=== PATIENT | female | born 1970 | race Caucasian/White ===

== ENCOUNTER 2016-08-18 07:27 | Day surgery (SDC) | payer BC, OTHER ==
[2016-08-11 14:46] LABS: BASO % 0.5 %; BASO ABS # 0.04 K/uL (0-0.2); COMPLETE YES; EOS % 0.6 %; HEMATOCRIT 43.4 % (37-47); IG% 0.1 %; LYMPH % 30.7 %; LYMPH ABS # 2.39 K/uL (1.2-3.4); MEAN CELL VOLUME 83.9 fL (80-100); MEAN CORPUSCULAR HEMOGLOBIN 28.2 pg (25-34); MEAN CORPUSCULAR HGB CONC 33.6 g/dl (32-36); MEAN PLATELET VOLUME 9.4 fL (7.4-10.4); MONO % 6.9 %; NEUT % 61.2 %; PLATELET COUNT 530 K/uL (130-400); RED BLOOD COUNT 5.17 M/uL (4.2-5.4); WHITE BLOOD COUNT 7.78 K/uL (4.8-10.8)
[2016-08-18] VITALS (9 sets, daily range): BP systolic 97–166; BP diastolic 53–75; PULSE 69–99; TEMP 36.4–37; O2SAT 95–98; Ht 160 cm; Wt 78.4 kg
[~2016-08-18] VITALS: Ht 160 cm; Wt 78.4 kg
[~2016-08-18 07:27] MED LIST: CEFAZOLIN 2000 MG/60 ML D5W 50 ML IV SCH; DEXAMETHASONE SOD INJ 4 MG/ML VIAL ONE; FENTANYL CITRATE INJ 50 MCG/1 ML 2 ML VIAL ONE; GLYCOPYRROLATE INJ 0.2 MG/ML VIAL ONE; LACTATED RINGER'S 1000ML 1,000 ML IV SCH; LIDOCAINE HCL 2% 2 ML VIAL (20MG/ML) ONE; MIDAZOLAM HCL 1 MG/ML 2ML VIAL ONE; NEOSTIGMINE METHYLSULFATE 5 MG/5 ML SYR ONE; ONDANSETRON INJ 2 MG/ML 2 ML VIAL ONE; PROPOFOL IV EMULSION 10 MG/ML 20 ML VIAL IV ONE; ROCURONIUM BROMIDE 10 MG/ML 5 ML VIAL ONE
[2016-08-18] MEDS ORDERED: GLYCOPYRROLATE INJ 0.2 MG/ML VIAL ONE (07:28)
[2016-08-18] MEDS ORDERED: SODIUM CHLORIDE 0.9% INJ 10 ML VIAL ONE (07:30)
[2016-08-18] MEDS ORDERED: METHYLENE BLUE 0.5% 10 ML VIAL ONE (08:06)
[2016-08-18] MEDS: LACTATED RINGER'S 1000ML 1,000 ML IV SCH ×2 (08:12→12:54)
--- NOTE | 2016-08-18 08:54 | History & Physical Bridge Note ---
H&P Re-Evaluation Bridge Note: I have examined the patient, reviewed the History & Physical and in the interval since the performance of the History & Physical I have noted the following changes of clinical significance: No changes noted
[2016-08-18] MEDS ORDERED: OXYC-57 PO (08:55)
--- NOTE | 2016-08-18 08:56 | Discharge Instructions ---
Discharge Instructions Date of Service Aug 18, 2016. Visit Reason for Visit: Menorrhagia; Leiomyoma of Uterus Discharge Discharge Diagnosis / Problem: menorrhagia Discharge Goals Goal(s): Specific goals Activity Recommendations Activity Limitations: per Instructions/Follow-up section Anesthesia . Post Anesthesia Instructions: If you have had General Anesthesia or IV Sedation: * Do not drive today. * Resume driving when surgeon permits. * Do not make important decisions or sign legal documents today. * Call surgeon for: 1. Temperature elevations greater than 101 degrees F. 2. Uncontrollable pain. 3. Excessive bleeding. 4. Persistent nausea and vomiting. 5. Medication intolerance (nausea, vomiting or rash). * For nausea and vomiting use only clear liquids such as: tea, soda, bouillon until nausea subsides, then gradually increase diet as tolerated. * If you have any concerns or questions, call your surgeon's office. If physician is unavailable and it is an emergency, call 911 or go to the nearest emergency room. . Diet Recommendations Recommended Home Diet: resume previous diet Pending Studies Studies pending at discharge: no Medical Emergencies . Who to Call and When: Medical Emergencies: If at any time you feel your situation is an emergency, please call 911 immediately. . Non-Emergent Contact Non-Emergency issues call your: Primary Care Provider . . "Provider Documentation" section prepared by Anna Gates. [place] Drug Monitoring Program Search Results: patient reviewed within database, no issues identified
[2016-08-18] MEDS ORDERED: MEPERIDINE HCL 75 MG/ML CARP IV PRN (09:00)
[2016-08-18] MEDS ORDERED: KETOROLAC TROMETHAMINE 30 MG/ML VIAL IV. PRN (09:00)
[2016-08-18] MEDS ORDERED: ATROPINE SULFATE 0.1 MG/ML 5ML SYR IV PRN (09:00)
[2016-08-18] MEDS ORDERED: EpHEDrine SULFATE INJ 50 MG/ML AMP IV PRN (09:00)
[2016-08-18] MEDS ORDERED: ONDANSETRON INJ 2 MG/ML 2 ML VIAL IV PRN ×2 (09:00)
[2016-08-18] MEDS ORDERED: OXYCODONE/ACETAMINOPHEN 5-325 TAB PO PRN (09:00)
[2016-08-18] MEDS ORDERED: ACETAMINOPHEN 325 MG TAB PO PRN (09:00)
[2016-08-18] MEDS ORDERED: PHENYLEPHRINE 100MCG/ML 5ML SYR IV PRN (09:00)
[2016-08-18] MEDS ORDERED: PROMETHAZINE HCL INJ 25 MG in SODIUM CHLORIDE 0.9% 50ML 50 ML IV PRN (09:00)
[2016-08-18] MEDS ORDERED: PROMETHAZINE HCL INJ 12.5 MG in SODIUM CHLORIDE 0.9% 50ML 50 ML IV PRN (09:00)
[2016-08-18] MEDS ORDERED: MEPERIDINE HCL 50 MG/ML CARP IV PRN (09:00)
[2016-08-18] MEDS ORDERED: SIMETHICONE 80 MG CHEW PO PRN (09:00)
[2016-08-18] MEDS ORDERED: FENTANYL CITRATE INJ 50 MCG/1 ML 2 ML VIAL ONE ×2 (09:34→10:52)
[2016-08-18] MEDS ORDERED: METOPROLOL TARTRATE 1 MG/ML VIAL ONE (09:44)
[2016-08-18] MEDS ORDERED: IV FLUIDS COMPLETED PRN (10:15)
--- NOTE | 2016-08-18 11:01 | [facility] Post Operative Brief Note ---
Immediate Operative Summary Operative Date Aug 18, 2016. Pre-Operative Diagnosis Menorrhagia, Fibroid Uterus Post-Operative Diagnosis Menorrhagia, Fibroid Uterus Procedure(s) Performed Robotic Assisted Total Laparoscopic Hysterectomy, Left Salpingectomy, Cystoscopy Surgeon Dr. Anna Gates Rug Cleaner Surgeon(s) Bhupinder Lee, MS3 Estimated Blood Loss 15 Findings Distorted fibroid uterus. surgically absent R tube and ovary. L tube present but previously ligated. L ovary normal. Appendix present / WNL. Specimens A. Uterus, Cervix, and Left Fallopian Tube. Complication(s) None Disposition Recovery Room / PACU
[2016-08-18] MEDS ORDERED: ONDANSETRON INJ 2 MG/ML 2 ML VIAL ONE (11:04)
[2016-08-18] MEDS: HYDROmorphone INJ 2 MG/ML SYR/VIAL IV PRN ×6 (11:11→11:40)
[2016-08-18] MEDS ORDERED: SCOPOLAMINE 1.5 MG TDSY TD ONE (11:24)
[2016-08-18] MEDS ORDERED: NURSING VERBAL MED ORDER STA (11:36)
[2016-08-18] MEDS ORDERED: HYDROmorphone INJ 1 MG/ML SYR ONE (11:40)
--- NOTE | 2016-08-18 11:51 | Anesthesiology Progress Note ---
Anesthesia Post Op Note Date & Time Aug 18, 2016 at 11:50 Vital Signs Pain Intensity: 5 Vital Signs Past 12 Hours Date Time Temp Pulse Resp B/P Pulse Ox O2 Delivery O2 Flow Rate FiO2 08/18/16 11:40 59 12 120/50 98 Nasal Cannula 2 08/18/16 11:30 71 11 131/68 98 Nasal Cannula 2 08/18/16 11:20 72 14 126/73 99 Mask 10 08/18/16 11:10 67 13 123/67 99 Mask 10 08/18/16 11:03 36.5 69 14 127/63 100 Mask 10 08/18/16 07:45 36.9 85 18 166/75 97 Room Air Notes Mental Status: alert / awake / arousable, participated in evaluation Pt Amnestic to Procedure: Yes Nausea / Vomiting: adequately controlled Pain: adequately controlled Airway Patency, RR, SpO2: stable & adequate BP & HR: stable & adequate Hydration State: stable & adequate Anesthetic Complications: no major complications apparent
--- NOTE | 2016-08-18 13:16 | Medical Student: [facility] ---
Operative Report Operative Date Aug 18, 2016. Pre-Operative Diagnosis menorrhagia Post-Operative Diagnosis same Procedure(s) Performed Total laparoscopic hysterectomy with robot assist and cystoscopy Surgeon Dr. Anna Gates Reconnaissance Man Surgeon(s) Bhupinder Lee, MS3 Estimated Blood Loss 15 ml Findings Distorted fibroid uterus. Surgically absent R tube and ovary. L tube present but previously ligated. L ovary normal. Appendix present / WNL. Specimens A. Cervix, Uterus, and Left fallopian tube Complication(s) None Disposition Recovery Room / PACU Description of Procedure The abdomen and vagina were prepped and draped. A Bradley catheter was inserted. Following sounding of the uterus, the balloon manipulator was placed and secured by inflating the balloon with saline. The cervical cup was placed around the cervix. An umbilical incision was made and a 12 mm camera port was placed using a trocar. Following insertion of the camera, the abdomen was insufflated. Two 8 mm ports were placed 10 cm lateral to the umbilicus and 2 cm inferiorly. Following confirmation of the placement of the ports, the [employer] robot was docked. The patient was placed in full Trendelenburg position. Inspection of the pelvis revealed a fibroid uterus, surgically absent right tube and ovary, and normal left ovary with evidence of prior tubal ligation. The left fallopian tube was cauterized and ligated. The infundibulopelvic ligament was also coagulated and cut. The round ligament was coagulated and cut. A bladder flap was created and the bladder was dissected from the cervix. The green cuff was then identified and an incision was made in the cervicovaginal junction on top of the vaginal cuff. The incision was extended around the circumference of the cuff. The uterus was removed using a tenaculum through the vagina. The vaginal cuff was closed with 0 Vicryl sutures. Hemostasis was achieved. Prior to closure of the incision sites, methylene blue was administered and 10 minutes later, cystoscopy was performed to assess the patency of the ureters. Both ureters were found to be patent. The umbilical site was closed with a suture of 0 Vicryl and the skin of this incision was closed with 4-0 monocryl. The lateral incisions were closed with Dermabond glue. The final needle, sponge, and instrument count was correct. The patient tolerated the procedure well. Patient to the recovery room in good condition.
[2016-08-18 15:27] LABS: HEMATOCRIT 41.1 % (37-47)
[2016-08-18] MEDS: CHECK SCOPOLAMINE PATCH PLACEMENT SCH (15:45)
--- NOTE | 2016-08-18 16:33 | OPERATIVE REPORT ---
DATE OF OPERATION: 08/18/2016 PREOPERATIVE DIAGNOSES: Menorrhagia and fibroid uterus. POSTOPERATIVE DIAGNOSIS: Same. PROCEDURE: Robotic-assisted total laparoscopic hysterectomy with left salpingectomy and cystoscopy. SURGEON: Anna Gates MD ENROLLMENT MANAGEMENT MANAGER: MS3. ESTIMATED BLOOD LOSS: 15 mL. FINDINGS: A distorted fibroid uterus, a surgically absent right tube and ovary. Left tube is present, but previously ligated. Left ovary appears normal and the appendix is present and grossly within normal limits. SPECIMENS: Uterus, cervix and left fallopian tube. COMPLICATIONS: None. DISPOSITION: Stable to the recovery room. DESCRIPTION OF PROCEDURE: Lashwan is a 46-year-old female with refractory menorrhagia who elected definitive treatment. She was brought to the operating room and placed in the dorsal lithotomy position with Yellofin stirrups, prepped and draped in standard sterile fashion and a hard time-out was taken prior to proceeding. Bradley and [employer] uterine manipulator were both placed. The abdomen was then approached and the entry was made in an optical manner at the umbilicus without complication. The abdomen was insufflated and under direct visualization, right and left lower quadrant ports were placed. The pelvic organs were easily visualized. The robot was then docked and surgery began in earnest. The uterus was noted to be grossly distorted with multiple fibroids. It was able to be manipulated well enough to allow for surgical approach to each cornu. Dissection began on the right side where the surgically absent right tube and ovary were as expected. Dissection began with ligation of the round ligament and dissection of the broad ligament in order to skeletonize the uterine artery, which was then ligated. A bladder flap was partially created. Attention was then turned to the left side, where the fallopian tube was dissected off the mesosalpinx and left attached to the cornua. The utero-ovarian ligament was ligated and divided, and dissection of the broad ligament was completed to skeletonize the uterine arteries. The bladder flap was completed and the bladder was mobilized. The uterine arteries were then ligated and divided on this side. Dissection was completed, colpotomy began and was completed circumferentially around the green colpotomy cup. The uterus was then grasped using a ring forceps and tenaculum from a vaginal approach and was gently teased out through the vagina with the left fallopian tube remaining attached. The entire specimen was set aside. Attention was then turned to closure of the cuff, which was achieved in the usual manner with a V-Loc suture in a running nonlocked manner. At the completion of the repair, the cuff was hemostatic, well approximated and no gas leakage per vagina was appreciated. Methylene blue was administered and cystoscopy was then performed, which revealed a strong jet of blue stained dye from each ureter. Ports were removed and gas was allowed to escape the abdomen. The abdominal incisions were closed using a UR-6 at the fascial level of the umbilical port, Monocryl at all other sites and Dermabond dressing. At the completion of surgery, the patient was in stable condition and transferred to the PACU. I attest to the content of the Intraoperative Record and any orders documented therein. Any exceptio ns are noted below.
[2016-08-18] MEDS: DOCUSATE SODIUM 100 MG CAP PO SCH (20:25)
[2016-08-18] MEDS: IBUPROFEN 600 MG TAB PO PRN (21:27)
[2016-08-19] MEDS: CHECK SCOPOLAMINE PATCH PLACEMENT SCH ×2 (00:15→08:28)
[2016-08-19 04:00] VITALS: BP 117/66; PULSE 87; TEMP 37.2; O2SAT 97
[2016-08-19] MEDS: OXYCODONE/ACETAMINOPHEN 5-325 TAB PO PRN ×2 (04:18→08:27)
[2016-08-19 07:30] VITALS: BP 118/68; PULSE 82; TEMP 37.1; O2SAT 98
[2016-08-19] MEDS: IBUPROFEN 600 MG TAB PO PRN (08:27)
[2016-08-19] MEDS: DOCUSATE SODIUM 100 MG CAP PO SCH (08:28)
[2016-08-19 08:49] VITALS: BP 118/68; PULSE 82; TEMP 37.1; O2SAT 98
--- NOTE | 2016-08-19 08:56 | Progress Note ---
Progress Note Date of Service Aug 19, 2016. Progress Note Patient visited on crews this AM. Now tolerating regular diet, ambulating, voiding and emptying, and tolerating oral pain medication well. Feels ready for discharge home. Labs and vitals reviewed, Hgb excellent. On exam patient is comfortable, seated upright eating breakfast, with normal unlabored respirations and fluent speech. She is wearing SCDs and has no LE edema or pain. Abdominal incisions are c/d/i x3. Plan is for D/C home today, f/u in 2 and 6 weeks as usual.
--- NOTE | 2016-08-24 11:01 | DISCHARGE SUMMARY ---
PREOPERATIVE DIAGNOSIS: Menorrhagia with fibroids. REASON FOR ADMISSION: Planned robotic assisted total laparoscopic hysterectomy, left salpingectomy and cystoscopy. COURSE OF CARE: Lashawn was admitted for the above named procedure which was uncomplicated and performed on the morning of 08/18/2016. Please see operative report for details. Her postop course was notable for a hemoglobin of 13.7, normal vital signs. The patient, however, did experience some nausea and generally unwell feeling which caused her to stay the night. By the morning she was feeling better, tolerating regular diet, voiding, ambulating and wished to go home. She was discharged on the morning of the with medications for pain including Percocet 30 tablets and instructions to follow up at the usual 2 and 6 week intervals.
== END 2016-08-19 09:15 | disposition home or self-care (01) ==
LOC: ENRESERVTM → ENRESERVDT → C.ACU 07:27 → C.MS4N 08:59
PROVIDERS: ADMIT Obstetrics & Gynecology; ATTEND Obstetrics & Gynecology
DX: N92.0 Excessive and frequent menstruation with regular cycle (principal); N84.0 Polyp of corpus uteri; D25.1 Intramural leiomyoma of uterus; D25.2 Subserosal leiomyoma of uterus; N72 Inflammatory disease of cervix uteri; D47.3 Essential (hemorrhagic) thrombocythemia; Z87.42 Personal history of other diseases of the female genital tract; Z82.49 Family history of ischemic heart disease and other diseases of the circulatory system
CPT/HCPCS: 58571; S2900

== ENCOUNTER → 2016-10-23 | Outpatient (CLI) | payer OTHER ==
[~2016-10-23] MED LIST changes: -CEFAZOLIN 2000 MG/60 ML D5W 50 ML IV SCH; -DEXAMETHASONE SOD INJ 4 MG/ML VIAL ONE; -FENTANYL CITRATE INJ 50 MCG/1 ML 2 ML VIAL ONE; -GLYCOPYRROLATE INJ 0.2 MG/ML VIAL ONE; -LACTATED RINGER'S 1000ML 1,000 ML IV SCH; -LIDOCAINE HCL 2% 2 ML VIAL (20MG/ML) ONE; -MIDAZOLAM HCL 1 MG/ML 2ML VIAL ONE; -NEOSTIGMINE METHYLSULFATE 5 MG/5 ML SYR ONE; -ONDANSETRON INJ 2 MG/ML 2 ML VIAL ONE; +OXYC-57 PO; -PROPOFOL IV EMULSION 10 MG/ML 20 ML VIAL IV ONE; -ROCURONIUM BROMIDE 10 MG/ML 5 ML VIAL ONE
--- NOTE | 2016-10-23 14:55 | MAMMOGRAPHY REPORT ---
BILATERAL DIGITAL DIAGNOSTIC MAMMOGRAM TOMOSYNTHESIS WITH CAD AND TARGETED BILATERAL ULTRASOUND: 10/23 CLINICAL HISTORY: 46-year-old woman presents with left breast pain in the upper outer quadrant. On r ecent physical exam her physician noted right breast cysts. Due for bilateral screening mammography. TECHNIQUE: Breast tomosynthesis in addition to standard 2D mammography was performed. Current study was also evaluated with a Computer Aided Detection (CAD) system. COMPARISON: Comparison is made to exams dated: 03/07/2013 mammogram and 08/11/2010 mammogram - [facility] BREAST COMPOSITION: There are scattered areas of fibroglandular density in both breasts. FINDINGS: The breast parenchymal pattern is similar to prior mammograms. No obvious new mass, focal area of architectural distortion, developing asymmetry or suspicious calcifications are seen. There is a benign rim calcification within the left breast. Targeted ultrasound was performed in the upper outer quadrant of the left breast in the area of pain pointed out by the patient, and also throughout the right breast to assess for a possible cyst. In t he left upper outer quadrant from the 12:00 through 3:00 axes, normal 5 to glandular tissue is seen w ithout a suspicious solid or cystic mass. Throughout the right breast, no discrete solid or cystic m ass is identified. IMPRESSION: ACR BI-RADS CATEGORY 2: BENIGN, TARGETED ULTRASOUND ACR BI-RADS CATEGORY 2: BENIGN 1. Stable bilateral mammograms. There is no mammographic or targeted sonographic evidence of malign lesly. 2. No suspicious mammographic or sonographic abnormality to explain the reported pain in the left up per outer quadrant, or a right breast cyst. Therefore, clinical follow-up is recommended, as biopsy of a clinically suspicious mass should not be precluded by negative imaging. Otherwise, recommend routine mammography in one year. These results and recommendations were discuss ed with the patient at the time of the exam. Approximately 10% of breast cancers are not detected with mammography. A negative mammographic report should not delay biopsy if a clinically suggestive mass is present. Regina Robb M.D. ay/:10/23/2016 09:53:51 [employer] Cell[employer]: Yvonne Rosa RT(R)(M), [facility] letter sent: Normal 1/2 BI-RADS Code: ACR BI-RADS Category 2: Benign Ultrasound BI-RADS: ACR BI-RADS Category 2: Benign
== END | disposition home or self-care (01) ==
LOC: C.MAMM 08:18
PROVIDERS: ATTEND Obstetrics & Gynecology
DX: N60.01 Solitary cyst of right breast (principal)

== ENCOUNTER → 2017-08-27 | Outpatient (CLI) | payer OTHER ==
--- NOTE | 2017-08-27 10:18 | DIAGNOSTIC IMAGING REPORT ---
THYROID ULTRASOUND CLINICAL HISTORY: Thyroid nodule. COMPARISON STUDY: None. TECHNIQUE: Sonography of the thyroid gland was performed. FINDINGS: The right thyroid lobe measures 5 x 1.2 x 1.7 cm and the left thyroid lobe measures 4.4 x 1 x 1.5 cm. Within the midpole of the right thyroid lobe, note is made of a circumscribed hypoechoic nodule that measures 1.4 x 0.8 x 0.9 cm. There is color flow within this nodule. No additional thyroid nodules are present. IMPRESSION: 1.4 cm right lobe thyroid nodule. Although no suspicious imaging characteristics, ultrasound-guided fine needle aspiration is recommended. Electronically signed by: Nilson Mccullough M.D. 08/27/2017 10:17 AM Dictated Date/Time: 08/27/2017 10:15 AM
--- NOTE | 2017-08-27 10:22 | DIAGNOSTIC IMAGING REPORT ---
RIGHT THIGH ULTRASOUND CLINICAL HISTORY: Lipomas. COMPARISON STUDY: No previous studies for comparison. TECHNIQUE: Sonography of the posterior right thigh and medial right thigh at site of palpable abnormalities was performed. FINDINGS: Note was made of a probable 5 x 1.8 x 5.5 cm echogenic subcutaneous lesion of the posterior right thigh which reflects the palpable abnormality. This has similar echogenicity to the adjacent subcutaneous fat. Differentiation between mass and subcutaneous fat is difficult by sonography. In addition, note is made of a 6.6 x 1.7 x 5.4 cm subcutaneous medial right thigh lesion which is isoechoic to adjacent fat. This also reflects the palpable abnormality. IMPRESSION: Two suspected right thigh masses, as described above. These correspond to the palpable abnormalities and favor lipomas although differentiation between lipomas and subcutaneous fat is difficult by sonography. Clinical follow-up to ensure stability is recommended. Electronically signed by: Nilson Mccullough M.D. 08/27/2017 10:20 AM Dictated Date/Time: 08/27/2017 10:17 AM
== END | disposition home or self-care (01) ==
LOC: C.ULTRBC 09:41
PROVIDERS: ATTEND Internal Medicine
DX: D17.9 Benign lipomatous neoplasm, unspecified (principal); E04.1 Nontoxic single thyroid nodule

== ENCOUNTER → 2017-09-04 | Outpatient (CLI) | payer OTHER ==
--- NOTE | 2017-09-04 10:29 | DIAGNOSTIC IMAGING REPORT ---
ULTRASOUND GUIDED FINE NEEDLE ASPIRATION OF 1.4 CM RIGHT LOBE THYROID NODULE CLINICAL HISTORY: Thyroid nodule. COMPARISON STUDY: Thyroid ultrasound August 27, 2017. PROCEDURE: Sonography of the thyroid gland demonstrated the 1.4 cm hypoechoic right lobe thyroid nodule which was targeted for fine needle aspiration. The procedure, risks and benefits were discussed with the patient including the risk of bleeding, infection and injury to adjacent structures. The patient agreed to the procedure and informed written consent was obtained. The procedure was performed by Dr. Mccullough following a timeout. Skin was prepped and draped in sterile fashion and local anesthesia was achieved with 1% lidocaine. Under direct ultrasound guidance, 3 25-gauge fine needle aspirations were performed. Samples were deemed preliminarily adequate by pathology. The patient tolerated the procedure well and no immediate complications were evident. IMPRESSION: Ultrasound guided fine needle aspiration of 1.4 cm right lobe thyroid nodule. Electronically signed by: Nilson Mccullough M.D. 09/04/2017 10:28 AM Dictated Date/Time: 09/04/2017 10:26 AM
== END | disposition home or self-care (01) ==
LOC: C.ULTR 09:29
PROVIDERS: ATTEND Internal Medicine
DX: E04.1 Nontoxic single thyroid nodule (principal)

== ENCOUNTER → 2017-09-04 | Outpatient (CLI) | payer OTHER ==
[2017-09-04 12:06] LABS: BASO % 0.3 %; BASO ABS # 0.02 K/uL (0-0.2); EOS ABS # 0.08 K/uL (0-0.5); HEMATOCRIT 43.5 % (37-47); HEMOGLOBIN 14.5 g/dL (12.0-16.0); IG# 0.01 K/uL (0.00-0.02); LYMPH % 27.7 %; MEAN CELL VOLUME 85.8 fL (80-100); MEAN CORPUSCULAR HEMOGLOBIN 28.6 pg (25-34); MEAN CORPUSCULAR HGB CONC 33.3 g/dl (32-36); MEAN PLATELET VOLUME 9.2 fL (7.4-10.4); MONO % 3.4 %; MONO ABS # 0.27 K/uL (0.11-0.59); NEUT % 67.5 %; NEUT ABS # 5.35 K/uL (1.4-6.5); PLATELET COUNT 432 K/uL (130-400); RED CELL DISTRIBUTION WIDTH CV 13.5 % (11.5-14.5); RED CELL DISTRIBUTION WIDTH SD 42.3 fL (36.4-46.3); WHITE BLOOD COUNT 7.93 K/uL (4.8-10.8)
[2017-09-04 12:28] LABS: ALBUMIN 3.3 gm/dl (3.4-5.0); ALT/SGPT 30 U/L (12-78); AST/SGOT 18 U/L (15-37); BLOOD UREA NITROGEN 13 mg/dl (7-18); CALCIUM 8.5 mg/dl (8.5-10.1); CARBON DIOXIDE 26 mmol/L (21-32); CREATININE 0.78 mg/dl (0.60-1.20); GLUCOSE 91 mg/dl (70-99); SODIUM 140 mmol/L (136-145)
[2017-09-04 12:33] LABS: ALKALINE PHOSPHATASE 94 U/L (45-117); CHOLESTEROL 257 mg/dl (0-200); LDL CHOLESTEROL CALCULATED 173 mg/dl; TOTAL PROTEIN 7.3 gm/dl (6.4-8.2)
== END | disposition home or self-care (01) ==
LOC: C.LAB1850 10:24
PROVIDERS: ATTEND Internal Medicine
DX: E04.1 Nontoxic single thyroid nodule (principal); D47.3 Essential (hemorrhagic) thrombocythemia; Z13.220 Encounter for screening for lipoid disorders

== ENCOUNTER → 2017-12-17 | Outpatient (CLI) | payer OTHER ==
[2017-12-17 13:55] LABS: BASO % 0.3 %; BASO ABS # 0.02 K/uL (0-0.2); EOS % 0.5 %; EOS ABS # 0.04 K/uL (0-0.5); HEMATOCRIT 44.4 % (37-47); HEMOGLOBIN 14.4 g/dL (12.0-16.0); IG# 0.02 K/uL (0.00-0.02); LYMPH % 25.1 %; MEAN CELL VOLUME 87.6 fL (80-100); MEAN CORPUSCULAR HEMOGLOBIN 28.4 pg (25-34); MEAN CORPUSCULAR HGB CONC 32.4 g/dl (32-36); MEAN PLATELET VOLUME 10.1 fL (7.4-10.4); MONO % 3.8 %; PLATELET COUNT 456 K/uL (130-400); RED CELL DISTRIBUTION WIDTH SD 44.8 fL (36.4-46.3); WHITE BLOOD COUNT 7.98 K/uL (4.8-10.8)
== END | disposition home or self-care (01) ==
LOC: C.LABPBG 11:01
PROVIDERS: ATTEND Internal Medicine
DX: E04.1 Nontoxic single thyroid nodule (principal); D47.3 Essential (hemorrhagic) thrombocythemia